=== PATIENT | female | born 1940 | race African-American/Black ===

== ENCOUNTER 2017-10-30 03:32 | Emergency (ER) | payer MEDICARE ==
[~2017-10-30] VITALS: Ht 157.5 cm; Wt 58.1 kg
[2017-10-30] MEDS ORDERED: cloNIDine HCL 0.1 MG TAB PO ONE (08:00)
[2017-10-30 08:08] LABS: Basophils # (auto) 0 uL; Basophils % (auto) 0.5 % (0.0-2.0); Hemoglobin 11.9 g/dL (12.2-16.2); Monocytes # (auto) 0.4 uL; Neutrophils # (auto) 3.3 uL; Nucleated Red Blood Cells % 0.3 %; White Blood Cell 5.9 10^3/uL (4.4-10.8)
[2017-10-30 08:10] LABS: Eosinophils # (auto) 0 uL; Eosinophils % (auto) 0.8 % (0.0-7.0); Lymphocytes # (auto) 2.1 uL; Lymphocytes % (auto) 36.2 % (10.0-50.0); Mean Corpuscular Hgb Conc. 32.2 g/dL (32.0-36.0); Mean Corpuscular Volume 80.7 fL (80.0-100.0); Neutrophils % (auto) 56.5 % (37.0-80.0); Platelet Count (auto) 178 10^3/uL (140-450); Red Blood Cells 4.59 10^6/uL (4.0-5.20)
[2017-10-30 08:29] LABS: Albumin 4.1 g/dL (3.4-5.0); BUN/Creatinine Ratio 11.5; Bilirubin, Total 0.4 mg/dL (0.2-1.0); Calcium 9.3 mg/dL (8.5-10.1); Potassium 3.5 mmol/L (3.5-5.1)
[2017-10-30 11:16] LABS: Urine Bacteria NONE SEEN /hpf (None Seen); Urine Blood Negative /uL (Negative); Urine Specific Gravity 1.012 (1.001-1.035); Urine WBC 7 /hpf (0 - 5)
[2017-10-30 12:00] VITALS: BP 148/74
== END 2017-10-30 13:39 | disposition home or self-care (01) ==
LOC: ER 03:35
DX: I10 Essential (primary) hypertension (principal); E03.9 Hypothyroidism, unspecified
CPT/HCPCS: 36415; 80053; 81001; 84443; 85025; 93005